=== PATIENT | male | born 1945 | race Caucasian/White ===

== ENCOUNTER 2024-09-02 18:20 | Emergency (ER) | payer MEDICARE, SELFPAY ==
[2024-09-02 18:24] VITALS: BP 145/109; PULSE 82; TEMP 36.6; O2SAT 99; BMI 33.9
[2024-09-02 18:40] VITALS: O2SAT 99
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
[2024-09-02] MEDS: HYDROCODONE/ACET 5-325 MG TABLET 1 TAB PO (18:51)
[2024-09-02] MEDS: ADACEL DIPH,PERTUSS(ACELL),TET VAC/PF 0.5 ML ADULT SYRINGE IM (18:52)
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
[2024-09-02] MEDS: BACITRACIN OINTMENT 28.4 GM TUBE 1 APPLIC TOPICAL (19:37)
== END 2024-09-02 19:41 | disposition home or self-care (01) ==
LOC: ER 19:33
PROVIDERS: Emergency Provider Emergency Medicine
DX: T22.111A Burn of first degree of right forearm, initial encounter (principal); T23.171A Burn of first degree of right wrist, initial encounter; T20.16XA Burn of first degree of forehead and cheek, initial encounter; X08.8XXA Exposure to other specified smoke, fire and flames, initial encounter; T31.11 Burns involving 10-19% of body surface with 10-19% third degree burns; Z23 Encounter for immunization
CPT/HCPCS: 90471; 90715; 99283

== ENCOUNTER 2024-09-07 08:56 | Emergency (ER) | payer MEDICARE, SELFPAY ==
[2024-09-07 09:03] VITALS: BP 156/87; PULSE 87; TEMP 37.2; O2SAT 98; BMI 33.9
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
== END 2024-09-07 09:29 | disposition home or self-care (01) ==
PROVIDERS: Emergency Provider Emergency Medicine
DX: T22.20XD Burn of second degree of shoulder and upper limb, except wrist and hand, unspecified site, subsequent encounter (principal); X08.8XXD Exposure to other specified smoke, fire and flames, subsequent encounter
CPT/HCPCS: 99283

== ENCOUNTER 2024-09-21 15:46 | Outpatient (OUT) | payer MEDICARE, MEDICAID, SELFPAY ==
[2024-09-21 16:27] LABS: Hematocrit 41.2 % (42.0-54.0); Hemoglobin 13.8 g/dL (14.0-18.0); Immature Granulocytes Abs Auto 0.02 10^3/uL (0.00-0.03); Immature Granulocytes Pct Auto 0.2 % (0.0-0.5); Lymphocytes Absolute Auto 2.7 10^3/uL (1.2-3.8); Mean Corpuscular HGB Conc 33.5 g/dL (29.9-35.2); Mean Corpuscular Hemoglobin 31.1 pg (25.9-34.0); Mean Corpuscular Volume 92.8 fL (80.0-94.0); Platelet Count 269 10^3/uL (150-450); Red Blood Count 4.44 10^6/uL (4.70-6.10); White Blood Count 8.5 10^3/uL (4.0-11.0)
[2024-09-21 17:17] LABS: Alanine Aminotransferase 24 U/L (16-63); Albumin Globulin Ratio 1.0; Albumin Level 3.7 g/dL (3.4-5.0); Alkaline Phosphatase 141 U/L (46-116); Anion Gap 12.1; Aspartate Amino Transferase 16 U/L (15-37); Blood Urea Nitrogen 16.0 mg/dL (7.0-18.0); Calcium 9.2 mg/dL (8.5-10.1); Carbon Dioxide 27.9 mmol/L (21.0-32.0); Chloride 108 mmol/L (98-107); Cholesterol 131 mg/dL (<=200); Estimated GFR (African America >60 (>=60 mL/min/1.73m^2); Estimated GFR (Non-African Ame 60 (>=60 mL/min/1.73m^2); Globulin 3.6 g/dL; Glucose 81 mg/dL (74-106); HDL Cholesterol 47 mg/dL (40-60); Potassium 4.0 mmol/L (3.5-5.1); Sodium 144 mmol/L (136-145); Total Protein 7.3 g/dL (6.4-8.2); Triglycerides 195 mg/dL (<=150); VLDL CHOLESTEROL 39.0 mg/dL
== END 2024-09-21 15:47 | disposition home or self-care (01) ==
LOC: LAB 15:50
PROVIDERS: PCP Internal Medicine; Visit Provider Internal Medicine
DX: I25.10 Atherosclerotic heart disease of native coronary artery without angina pectoris (principal); E78.00 Pure hypercholesterolemia, unspecified; I10 Essential (primary) hypertension; Z12.5 Encounter for screening for malignant neoplasm of prostate; C61 Malignant neoplasm of prostate
CPT/HCPCS: 36415; 80053; 80061; 85025; G0103